=== PATIENT | male | born 1955 | race Caucasian/White ===

== ENCOUNTER 2018-11-24 20:10 | Emergency (ER) | payer BC ==
--- NOTE | 2018-11-24 21:16 | EDM.PDOC ---
ED HPI GENERAL MEDICAL PROBLEM - General Chief Complaint: Lower Extremity Injury/Pain Stated Complaint: SWOLLEN FOOT Time Seen by Provider: 11/24/18 20:58 Source of Information: Reports: Patient, RN Notes Reviewed History Limitations: Reports: No Limitations - History of Present Illness INITIAL COMMENTS - FREE TEXT/NARRATIVE: Patient is a 63-year-old male who presents to the ED for evaluation of a left swollen foot. The patient noticed that the left ankle started to swell yesterday, and he started developing some sharp shooting pain into his ankle and left foot this afternoon. He notes a history of gout, but normally his flares her on his right foot. He states that the pain is very similar to the gout flares in his right foot. He's been rotating Tylenol and ibuprofen and this has not been providing much relief. He states he has also been taking Uloric for 2 weeks now, in attempts to try to lower the uric acid to prevent gout flares. He does not find that this seems to be helping. He states his primary care provider is Dr. Reddy, and he has also seen Dr. Kitchen in the past. He states that he has tried prednisone as well, this does not provide much relief. He states that colchicine works the best for his gout flares. Treatments [employer]: Reports: Acetaminophen Left Ankle Pain Score (Numeric/FACES): 8 - Related Data Allergies Allergy/AdvReac Type Severity Reaction Status Date / Time No Known Allergies Allergy Verified 11/24/18 20:25 Home Meds: Home Meds Colchicine 0.6 mg PO ASDIRECTED #9 tablet MDD 1.8mg 11/24/18 [Rx] Febuxostat [Uloric] 40 mg PO DAILY 11/24/18 [History] Past Medical History - Past Surgical History GI Surgical History: Reports: Cholecystectomy Social & Family History - Tobacco Use Smoking Status *Q: Never Smoker - Caffeine Use Caffeine Use: Reports: Coffee - Recreational Drug Use Recreational Drug Use: No Review of Systems - Review of Systems Review Of Systems: See Below Constitutional: Reports: No Symptoms Eyes: Reports: No Symptoms Ears: Reports: No Symptoms Nose: Reports: No Symptoms Mouth/Throat: Reports: No Symptoms Respiratory: Reports: No Symptoms Cardiovascular: Reports: No Symptoms GI/Abdominal: Reports: No Symptoms Genitourinary: Reports: No Symptoms Musculoskeletal: Reports: Joint Pain (left ankle/foot) Skin: Reports: No Symptoms, Erythema (redness/swelling to Left foot/ankle) Neurological: Reports: No Symptoms Psychiatric: Reports: No Symptoms ED EXAM, GENERAL - Physical Exam Exam: See Below Exam Limited By: No Limitations General Appearance: Alert, WD/WN, No Apparent Distress Respiratory/Chest: No Respiratory Distress, Lungs Clear, Normal Breath Sounds, No Accessory Muscle Use, Chest Non-Tender Cardiovascular: Normal Peripheral Pulses, Regular Rate, Rhythm, No Murmur Peripheral Pulses: 3+: Radial (L), Radial (R) Extremities: Normal Inspection (Right foot/ankle), Normal Capillary Refill, Other (red swollen Left foot/ankle, ROM intact) Neurological: Alert, Oriented, Normal Cognition, No Motor/Sensory Deficits Psychiatric: Normal Affect, Normal Mood Skin Exam: Warm, Dry, Intact, Other (SEE EXTREMITIES DOCUMENTATION) Course - Vital Signs Last Recorded V/S: Last Vital Signs Temp 97.7 F 11/24/18 20:21 Pulse 87 11/24/18 20:21 Resp 18 11/24/18 20:21 BP 159/85 H 11/24/18 20:21 Pulse Ox 99 11/24/18 20:21 - Re-Assessments/Exams Free Text/Narrative Re-Assessment/Exam: 11/24/18 21:23 Patient presents to the ED for the evaluation of a swollen left ankle and foot. His symptoms are consistent with gout at this time. I have sent a prescription for colchicine, as this seems to provide him the most benefit. He will pick this up and take as directed. Departure - Departure Time of Disposition: 21:14 Disposition: Home, Self-Care 01 Condition: Fair Clinical Impression: Gout Qualifiers: Gout site: foot Gout etiology: unspecified cause Chronicity: acute Laterality: left Qualified Code(s): M10.9 - Gout, unspecified - Discharge Information *PRESCRIPTION DRUG MONITORING PROGRAM REVIEWED*: No *COPY OF PRESCRIPTION DRUG MONITORING REPORT IN PATIENT HILARIO: No Prescriptions: Colchicine 0.6 mg PO ASDIRECTED #9 tablet MDD 1.8mg Instructions: Low-Purine Eating Plan, Gout, [id number] Referrals: Feliz Wood MD [Primary Care Provider] - Forms: ED Department Discharge Additional Instructions: You have been evaluated in the ED today for your red swollen foot. Your symptoms are consistent with gout. You have been provided with a prescription for colchicine, please take as directed this has been electronic was sent to the [place] [facility]. You may take 600 mg ibuprofen or 500 mg Tylenol every 6 hours as needed for further pain relief. Please do not exceed 4000 mg Tylenol, or 3200 mg ibuprofen in a 24-hour time span. Please return to the ED if your symptoms should change or worsen
== END 2018-11-24 21:25 | disposition home or self-care (01) ==
LOC: JD.ED 20:10
DX: M10.9 Gout, unspecified (principal); Z90.49 Acquired absence of other specified parts of digestive tract
CPT/HCPCS: 99283